=== PATIENT | male | born 1995 | race Caucasian/White ===

== ENCOUNTER 2017-12-27 00:24 | Emergency (ER) | payer OTHER ==
[2017-12-27 00:34] VITALS: BP 139/68
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
[2017-12-27] MEDS ORDERED: IBUPROFEN 800 MG TAB PO ONE (00:44)
== END 2017-12-27 01:26 | disposition home or self-care (01) ==
DX: T14.8XXA Other injury of unspecified body region, initial encounter (principal); V13.9XXA Unspecified pedal cyclist injured in collision with car, pick-up truck or van in traffic accident, initial encounter; Y92.410 Unspecified street and highway as the place of occurrence of the external cause; Y99.8 Other external cause status; Y93.89 Activity, other specified
CPT/HCPCS: L1830; L3908